=== PATIENT | female | born 1985 | race Caucasian/White ===

== ENCOUNTER → 2017-01-01 | Outpatient (CLI) | payer OTHER ==
[~2017-01-01] MED LIST: ACHYD1T PO; AMIT25TA9 PO; CETI10CA PO; CETI10TA17 PO; CFP200T PO; CHOL2000 PO; CPR500T PO; CYCL10TA9 PO; DCS100C PO; ERYT400T73 PO; FLC150T PO; FLUT16SP22 NSEACH; HYDR-3454 PO; HYDR-89 PO; IBP800T PO; LINA290C PO; LVT.05T PO; MULT-963 PO; NF-ESOM40C PO; OXYC-272 PO; PHEN200T27 PO; PHEN37.555 PO; PREN1TAB39 PO; RIZA10TA23; SPRINTEC PO; SUMA1TAB PO; allergy injections; fiber supplement
--- OUTSIDE RECORDS SUMMARY | 2017-01-01 08:57 | XMS REPORT | Continuity of Care Document ---
Author Author [facility] Organization [facility] Address Unknown Phone Unavailable Care Team Providers Care Fish Hatchery Specialist Name Role Phone Huey Roberts PCP [phone] Source Comments Some departments are not documenting in the electronic medical record. If you do not see the information that you expected, contact Release of Information in the Health Information Management department at [phone] for further assistance in locating additional records.[facility] Active Allergies and Adverse Reactions Allergen Noted Date Severity Reactions Comments Adhesive Tape (Rosins) 02/27/2016 Medium RASH Bactroban 08/09/2014 RASH Doxycycline 08/09/2014 STOMACH UPSET Tramadol 08/09/2014 AGITATION Current Medications Prescription Sig. Disp. Refills Start End Date Status Date MULTIVITAMIN PO Take by mouth. Active cetirizine (ZYRTEC) 10 mg Take 10 mg by mouth Active tablet daily. esomeprazole DR(+) Take 40 mg by mouth every Active (NEXIUM) 40 mg capsule morning. estrogens, Take 1 Tab by mouth Active estrafied-methyltestoster daily. one(+) (ESTRATEST) 1.25-2.5 mg tablet HYDROcodone-acetaminophen Take 1 Tab by mouth every Active (+) (VICODIN) 10-325 mg 6 hours as needed. tablet NAPROXEN SODIUM (ALEVE Take by mouth. Active PO) fluticasone (FLONASE) 50 Apply 2 Sprays to each Active mcg/actuation nasal spray nostril as directed daily. lidocaine 5 % gel Apply to affected area. Active LORCASERIN HCL (BELVIQ Take by mouth. Active PO) imiquimod(+) (ALDARA) 5 % Apply to affected area Active topical cream three times weekly. Active Problems Problem Noted Date Rash of face 08/09/2014 Overview: Red, slightly raised rash on face with small vesicles around mouth and eyelids. Present since Nov 2013. No clear trigger, though appeared 1 month after pelvic surgeries. Has tried switching make up and face products without noticeable change. Tried 1% and 2% hydrocortisone cream with relief. Was prescribed keflex and bactroban and steroid taper. Rash got worse with bactroban, but improved after ceasing bactroban. Tried stopping all makeup. Without resolution of symptoms (though she tried this while using the bactroban). Rash has not resolved with steroids. - Rash is concerning for contact dermatitis, although should have improved with steroids if it is contact dermatitis. - Would recommend only using hypoallergenic, fragrance free products on her face and dermatology referral for possible biopsy. PLAN - asked patient to only use hypoallergenic, fragrance free products such as makeup and moisturizer - Advised to consider dermatology referral for skin biopsy - she will see performance improvement director near hometown - Continue 1% hydrocortisone cream on face on problem areas only Seasonal allergies 08/09/2014 Overview: [facility] Gets weekly allergy shots Social History Tobacco Use Types Packs/Day Years Used Date Former Smoker Cigarettes Quit: 08/09/2003 Smokeless Tobacco: Never Used Last Filed Vital Signs Vital Sign Reading Time Taken Blood Pressure 111/71 02/27/2016 12:51 PM CDT Pulse 65 02/27/2016 12:51 PM CDT Temperature 36.3 C (97.4 F) 08/09/2014 3:11 PM CDT Respiratory Rate 20 02/27/2016 12:51 PM CDT Height 1.702 m (5' 7") 02/27/2016 12:51 PM CDT Weight 87.544 kg (193 lb) 02/27/2016 12:51 PM CDT Body Mass Index 30.22 02/27/2016 12:51 PM CDT Oxygen Saturation - - Plan of Care Health Maintenance Due Date Last Done Comments Physical (Comprehensive) 1990 Exam Pertussis Vaccine 1994 Tetanus Vaccine 2000 Influenza Vaccine 06/25/2016 Cervical Cancer Screening 10/25/2017 10/25/2014 (Previously completed) Results from Last 3 Months Not on file
[2017-01-01 09:10] LABS: BASOPHILS % (AUTO) 1 % (0-10); EOSINOPHILS # (AUTO) 0.1 10^3/uL (0.0-0.3); EOSINOPHILS % (AUTO) 3 % (0-10); LYMPHOCYTES # (AUTO) 2.3 X 10^3 (1.0-4.0); LYMPHOCYTES % (AUTO) 46 % (12-44); MEAN CORPUSCULAR HEMOGLOBIN 31 PG (25-34); MEAN CORPUSCULAR HGB CONC 35 G/DL (32-36); MEAN CORPUSCULAR VOLUME 89 FL (80-99); MEAN PLATELET VOLUME 9.5 FL (7.4-10.4); MONOCYTES # (AUTO) 0.3 X 10^3 (0.0-1.0); MONOCYTES % (AUTO) 6 % (0-12); NEUTROPHILS # (AUTO) 2.2 X 10^3 (1.8-7.8); NEUTROPHILS % (AUTO) 44 % (42-75); PLATELET COUNT 283 10^3/uL (130-400); RED CELL DISTRIBUTION WIDTH 12.1 % (10.0-14.5)
[2017-01-01 09:30] LABS: ALANINE AMINOTRANSFERASE 24 U/L (0-55); ALBUMIN 4.2 G/DL (3.2-4.5); ANION GAP 9 MMOL/L (5-14); ASPARTATE AMINO TRANSFERASE 23 U/L (5-34); BILIRUBIN,TOTAL 0.4 MG/DL (0.1-1.0); BLOOD UREA NITROGEN 11 MG/DL (7-18); BUN/CREATININE RATIO 13; CALCIUM 9.4 MG/DL (8.5-10.1); CARBON DIOXIDE 29 MMOL/L (21-32); CHLORIDE 103 MMOL/L (98-107); CHOLESTEROL 202 MG/DL (< 200); CREATININE SERUM 0.85 MG/DL (0.60-1.30); DIRECT LDL 150 MG/DL (1-129); GFR ESTIMATED > 60; GLUCOSE 83 MG/DL (70-105); POTASSIUM 4.2 MMOL/L (3.6-5.0); SODIUM 141 MMOL/L (135-145); TOTAL PROTEIN 6.7 G/DL (6.4-8.2); TRIGLYCERIDES 116 MG/DL (<150); VLDL CHOLESTEROL 23 MG/DL (5-40); hs C REACTIVE PROTEIN 0.28 MG/DL (0.00-0.50)
[2017-01-01 09:49] LABS: THYROID STIMULATING HORMONE 0.82 UIU/ML (0.35-4.94)
[2017-01-01 09:50] LABS: ERYTHROCYTE SEDIMENTATION RATE 10 MM/HR (0-20)
== END ==
LOC: LAB 08:52
PROVIDERS: ATTEND Nurse Practitioner Family
DX: Z00.00 Encounter for general adult medical examination without abnormal findings (principal); E78.2 Mixed hyperlipidemia; G89.4 Chronic pain syndrome; Z79.899 Other long term (current) drug therapy
CPT/HCPCS: 36415; 80053; 80061; 84443; 85025; 85652; 86141

== ENCOUNTER 2017-06-30 05:38 | Outpatient (CLI) | payer OTHER ==
[~2017-06-30] VITALS: Ht 167.6 cm; Wt 81.2 kg
[2017-06-30] MEDS ORDERED: FAMO-119 PO (13:34)
[2017-06-30] MEDS ORDERED: METH10TA3 PO (13:34)
[2017-06-30] MEDS ORDERED: LORC10TA PO (13:34)
[2017-06-30] MEDS ORDERED: ESTR-32 PO (13:34)
[2017-07-02] MEDS ORDERED: PANT40TA2 PO (13:08)
== END 2017-06-30 13:35 ==
LOC: PREOP 05:38
PROVIDERS: ATTEND Surgery
DX: Z01.818 Encounter for other preprocedural examination (principal); K21.9 Gastro-esophageal reflux disease without esophagitis

== ENCOUNTER 2017-07-02 10:57 | Day surgery (SDC) | payer OTHER ==
[~2017-07-02] VITALS: Ht 167.6 cm; Wt 81.2 kg
[~2017-07-02 10:57] MED LIST changes: +ESTR-32 PO; +FAMO-119 PO; +LORC10TA PO; +METH10TA3 PO
[2017-07-02] MEDS ORDERED: NS IV 500 ML 500 ML ONE (10:59)
--- OUTSIDE RECORDS SUMMARY | 2017-07-02 11:06 | XMS REPORT | Clinical Summary ---
Author Author [facility] Organization [facility] Address Unknown Phone Unavailable Care Team Providers Care Environmental Protection Officer Name Role Phone PCP Unavailable Source Comments Some departments are not documenting in the electronic medical record. If you do not see the information that you expected, contact Release of Information in the Health Information Management department at [phone] for further assistance in locating additional records.[facility] Allergies Active Allergy Reactions Severity Noted Date Comments Adhesive Tape (Rosins) RASH Medium 02/27/2016 Mupirocin Calcium RASH 08/09/2014 Doxycycline STOMACH UPSET 08/09/2014 Tramadol AGITATION 08/09/2014 Current Medications Prescription Sig. Disp. Refills Start [...] for skin biopsy - she will see tile sprayer near hometown - Continue 1% hydrocortisone cream on face on problem areas only Seasonal allergies 08/09/2014 Overview: [facility] Gets weekly allergy shots Family History Medical History Relation Name Comments Heart Disease Paternal Grandfather Relation Name Status Comments Paternal Grandfather Social History Tobacco Use Types Packs/Day Years Used Date Former Smoker Cigarettes Quit: 08/09/2003 Smokeless Tobacco: Never Used Sex Assigned at Date Recorded Not on file Last Filed Vital Signs Vital Sign Reading Time Taken Blood Pressure 111/71 02/27/2016 12:51 PM CDT Pulse 65 02/27/2016 12:51 PM CDT Temperature 36.3 C (97.4 F) 08/09/2014 3:11 PM CDT Respiratory Rate 20 02/27/2016 12:51 PM CDT Oxygen Saturation - - Inhaled Oxygen - - Concentration Weight 87.5 kg (193 lb) 02/27/2016 12:51 PM CDT Height 170.2 cm (5' 7") 02/27/2016 12:51 PM CDT Body Mass Index 30.23 02/27/2016 12:51 PM CDT Plan of Treatment Health Maintenance Due Date Last Done Comments PHYSICAL (COMPREHENSIVE) 1990 EXAM PERTUSSIS VACCINE 1994 TETANUS VACCINE 2000 INFLUENZA VACCINE 06/25/2017 CERVICAL CANCER SCREENING 10/25/2017 10/25/2014 (Previously completed) Results Not on filefrom Last 3 Months
[2017-07-02] MEDS ORDERED: NS IV 500 ML 500 ML IV SCH (11:15)
[2017-07-02] MEDS ORDERED: HURRICAINE EXT TUBE (BENZOCAINE) XX PRN (11:15)
[2017-07-02 11:25] VITALS: BP 95/67
--- NOTE | 2017-07-02 11:44 | Conscious Sedation/ASA ---
Conscious Sedation Pre-Proced Time Reviewed: 11:40 ASA Class: 1 Airway Mallampati Classification: ([place] appropriate class) I. II. III, IV Lungs Heart ASA score ASA 1: a normal healthy patient ASA 2: a patient with a mild systemic disease (mid diabetes, controlled hypertension, obesity ASA 3: a patient with a severe systemic disease that limits activity (angina , COPD, prior Myocardial infarction) ASA 4: a patient with an incapacitating disease that is a constant threat to life (CHF, renal failure) ASA 5: a moribund patient not expected to survive 24 hrs. (ruptured aneurysm) ASA 6: a declared brain patient whose organs are being harvested. For emergent operations, add the letter E after the classification Grade 2 Sedation Plan: Analgesia, Amnesia, Plan communicated to team members, Discussed options with patient/fam, Discussed risks with patient/fam Note The patient is an appropriate candidate to undergo the planned procedure, sedation, and anesthesia. The patient immediately re-assessed prior to indication. LINA CORRALES MD Jul 02, 2017 11:44 am
--- NOTE | 2017-07-02 11:44 | Progress Note-Pre Operative ---
Pre-Operative Progress Note H&P Reviewed The H&P was reviewed, patient examined and no changes noted. Date Seen by Provider: Jul 02, 2017 Time Seen by Provider: 11:40 Date H&P Reviewed: Jul 02, 2017 Time H&P Reviewed: 11:40 Pre-Operative Diagnosis: LINA WALKER MD Jul 02, 2017 11:44 am
[2017-07-02] MEDS ORDERED: ACETAMINOPHEN 325 MG TABLET/CAPLET (TYLENOL) PO PRN (11:45)
[2017-07-02] MEDS ORDERED: HYDROcodone/APAP 5 MG/325 MG (LORTAB) TAB PO PRN (11:45)
[2017-07-02] MEDS ORDERED: morphine INJ 10 MG/ML 1ML (SYR OR VIAL) IV PRN (11:45)
[2017-07-02] MEDS ORDERED: ONDANSETRON 4 MG/2 ML (SDV) Z0FRAN IV PRN (11:45)
[2017-07-02] MEDS ORDERED: MIDAZOLAM 2 MG/2 ML (VERSED) VIAL ONE ×4 (11:59→12:35)
[2017-07-02] MEDS ORDERED: fentaNYL INJECTION 100 MCG/2 ML AMP ONE (12:00)
[2017-07-02] MEDS ORDERED: LIDOCAINE JELLY 2% (XYLOCAINE) 5 ML TUBE ONE (12:00)
[2017-07-02] MEDS ORDERED: HURRICAINE EXT TUBE (BENZOCAINE) ONE (12:01)
[2017-07-02] MEDS: fentaNYL INJECTION 100 MCG/2 ML AMP IVP PRN ×2 (12:25→12:42)
[2017-07-02] MEDS: MIDAZOLAM 2 MG/2 ML (VERSED) VIAL IVP PRN ×4 (12:27→12:45)
--- NOTE | 2017-07-02 13:07 | Progress Note-Post Operative ---
Post-Operative Progess Note Surgeon (s)/Heavy Equipment Sales Associate (s) Surgeon LINA CORRALES MD Heavy Equipment Sales Associate: none Pre-Operative Diagnosis GERD Post-Operative Diagnosis reflux esophagitis(class B), small-moderate HH(1.5-2cm), mild-moderate gastritis. Procedure & Operative Findings Date of Procedure 07/02/17 Procedure Performed/Findings EGD with bx. Anesthesia Type minimal Estimated Blood Loss Estimated blood loss (mL): minimal Specimens/Packing Specimens Removed GE jxn, antrum LINA CORRALES MD Jul 02, 2017 1:07 pm
[2017-07-02] MEDS ORDERED: PANT40TA2 PO (13:08)
--- NOTE | 2017-07-02 13:10 | Discharge Inst-Surgical ---
D/C Lap Instructions-KIDO New, Converted, or Re-Newed RX: RX on Chart Follow Up PRN Activity as tolerated No driving for 24 hours Avoid Alcohol, Caffeine, Spicy [place] and Acid foods. Drink 64 fluid oz or more of fluids per day. Symptoms to Report: Fever over 101 degree F, Nausea/Vomiting If any problems/questions: Contact your physician or go to Emergency Room LINA CORRALES MD Jul 02, 2017 1:10 pm
[2017-07-02 13:15] VITALS: BP 131/55
[2017-07-02] MEDS ORDERED: LIDOCAINE JELLY 2% (XYLOCAINE) 5 ML TUBE TOP ONE (13:15)
[2017-07-02 13:45] VITALS: BP 90/59
[2017-07-02 14:00] VITALS: BP 95/67
[2017-07-02 14:08] VITALS: BP 95/67
--- NOTE | 2017-07-04 09:35 | OPERATIVE REPORT ---
DATE OF SERVICE: 07/02/2017 ATTENDING PRIMARY CARE PHYSICIAN: Dr. Aileen Roberts. PREOPERATIVE DIAGNOSIS: Gastroesophageal reflux disease. POSTOPERATIVE DIAGNOSES: Reflux esophagitis class B, qceia-ym-ybjjayzu size hiatal hernia, approximately 1.5 to 2 cm in size, zbif-nn-lrzkpdju gastritis. PROCEDURE: EGD with biopsy. SURGEON: Lina Corrales MD ANESTHESIA: Conscious sedation. ESTIMATED BLOOD LOSS: Minimal. FINDINGS: Reflux esophagitis class B, zlmlz-ox-pfsmrdvo size hiatal hernia 1.5 to 2 cm in size, sghf-wy-kcanwyzc gastritis. DISPOSITION: The patient tolerated the procedure well. INDICATIONS: The patient is a 32-year-old female known to us. She has had issues with chronic abdominal pain including a history of endometriosis. She underwent a laparoscopic hysterectomy in October 2012 and states that she did have some postoperative bleeding, requiring a reclosure of the vaginal cuff. She then underwent a completion of bilateral salpingo-oophorectomy in June 2013. She did have a colonoscopy performed due to chronic abdominal pain on February 2014 , which showed chronic stage I external and internal hemorrhoids; however, the remainder of the rectum and colon were normal with no darkly pigmented spots to indicate any endometrial implants throughout the colon. She has had a significant history of reflux in the past; however, this was normally controlled with Nexium; however, she reports that her symptoms have worsened despite losing weight. She reports upon eating some meals as well as upon exertion of Valsalva, she will also have recurrent episodes of reflux and regurgitation. DESCRIPTION OF PROCEDURE: The patient was brought to the endoscopy suite, laid in the left lateral decubitus position. After adequate IV pain and sedative medications and conscious sedation anesthesia, the mouthpiece was applied. The endoscope was placed in the mouth, visualizing the pharynx and hypopharyngeal region. Vocal cords, epiglottis and vallecula identified and appeared to be normal. The endoscope was then gently intubated at the esophageal opening and esophagus was insufflated. The endoscope was then advanced to the first, second and third portions of the esophagus. At the level of the GE junction, a reflux esophagitis class B identified. There were no ulcers or strictures identified in this region. A biopsy was taken with forceps with visualization of good hemostasis. The endoscope was then gently advanced in the stomach. The endoscope retroflexed, visualizing a small to moderate size hiatal hernia 1.5 to 2 cm in size. There was a mild to moderate gastritis; however, there were no formal ulcers, polyps or any neoplasms identified throughout the stomach. A biopsy was taken of the stomach antrum with forceps with visualization of good hemostasis. The endoscope was then advanced to the pylorus and the first and second portions of the duodenum, which appeared normal with no distal obstructions. The endoscope was then slowly withdrawn while taking a second look and suctioning of residual air with no additional findings. The patient tolerated the procedure well. We will have her undergo the necessary lifestyle and diet accommodation including small and more frequent meals, avoidance of eating at night as well as head elevation while laying supine. We will also have her avoid caffeinated beverages, spicy, greasy and acidic foods. We will also proceed with a trial of Protonix 40 mg daily. If she does have recurrent symptoms despite maximal medical therapy, this may be an indication for her to have the hiatal hernia repair. Job ID: [id number] DocumentID: [id number] Dictated Date: 07/02/2017 13:01:59 Accountancy Professor Date: 07/03/2017 04:25:35 Dictated By: LINA CORRALES MD
== END 2017-07-02 14:00 | disposition home or self-care (01) ==
LOC: ENDO 10:57
PROVIDERS: ATTEND Surgery
DX: K21.0 Gastro-esophageal reflux disease with esophagitis (principal); K44.9 Diaphragmatic hernia without obstruction or gangrene; K29.70 Gastritis, unspecified, without bleeding; Z87.891 Personal history of nicotine dependence; Z79.899 Other long term (current) drug therapy

== ENCOUNTER → 2017-07-08 | Outpatient (CLI) | payer OTHER ==
[~2017-07-08] MED LIST changes: +PANT40TA2 PO
[2017-07-08 08:49] LABS: CHOLESTEROL 188 MG/DL (< 200); DIRECT LDL 138 MG/DL (1-129); TRIGLYCERIDES 71 MG/DL (<150); VLDL CHOLESTEROL 14 MG/DL (5-40)
== END ==
LOC: LAB 08:00
PROVIDERS: ATTEND Family Medicine
DX: E78.2 Mixed hyperlipidemia (principal)
CPT/HCPCS: 36415; 80061

== ENCOUNTER 2017-08-11 11:13 | Outpatient (RCR) | payer OTHER | END 2017-11-09 | disposition home or self-care (01) | LOC: CARD 11:13 | PROVIDERS: ATTEND Nurse Practitioner Family | DX: R00.2 Palpitations (principal) | CPT/HCPCS: 93225; 93226 ==

== ENCOUNTER → 2017-09-07 | Outpatient (CLI) | payer OTHER | LOC: CARD 11:58 | PROVIDERS: ATTEND Internal Medicine Cardiovascular Disease | DX: J30.2 Other seasonal allergic rhinitis (principal); R00.2 Palpitations; G89.4 Chronic pain syndrome | CPT/HCPCS: 93306; 93351 ==

== ENCOUNTER 2017-10-06 08:55 | Outpatient (CLI) | payer OTHER | END 2017-10-06 09:20 | disposition home or self-care (01) | LOC: SLEEP 08:55 | PROVIDERS: ATTEND Otolaryngology Otolaryngology/Facial Plastic Surgery | DX: R06.83 Snoring (principal) ==

== ENCOUNTER → 2018-03-10 | Outpatient (CLI) | payer OTHER ==
--- NOTE | 2018-03-10 18:37 | Diagnostic Imaging Report ---
INDICATION: Routine screening. No prior mammograms are available for comparison. This is a baseline study. 2D and 3D bilateral screening mammography was performed. The current study was also evaluated with a Computer Aided Detection (CAD) system. FINDINGS: Scattered fibronodular densities are identified bilaterally. No mass or malignant-appearing microcalcifications are seen. The axillae are unremarkable. IMPRESSION: No mammographic features suspicious for malignancy are identified. ACR BI-RADS Category 1: Negative. Result letter will be mailed to the patient. Note: At least 10% of breast cancer is not imaged by mammography. Dictated by: Dictated on workstation # [id number]
== END ==
LOC: RAD 14:36
PROVIDERS: ATTEND Obstetrics & Gynecology
DX: Z12.31 Encounter for screening mammogram for malignant neoplasm of breast (principal)
CPT/HCPCS: 77067

== ENCOUNTER 2018-07-21 08:14 | Outpatient (RCR) | payer OTHER ==
[~2018-07-21 08:14] MED LIST changes: -ESTR-32 PO; +ESTR-85 PO
== END 2018-07-24 | disposition home or self-care (01) ==
PROVIDERS: ATTEND Nurse Practitioner Family
DX: R10.2 Pelvic and perineal pain (principal)

== ENCOUNTER 2018-10-21 14:23 | Outpatient (RCR) | payer OTHER | END 2018-10-23 | disposition home or self-care (01) | PROVIDERS: ATTEND Nurse Practitioner Family | DX: R10.2 Pelvic and perineal pain (principal) ==

== ENCOUNTER 2018-10-28 08:30 | Outpatient (RCR) | payer OTHER | END 2018-11-23 15:20 | disposition home or self-care (01) | PROVIDERS: ATTEND Nurse Practitioner Family | DX: R10.2 Pelvic and perineal pain (principal) ==

== ENCOUNTER → 2018-11-22 | Outpatient (CLI) | payer OTHER ==
[2018-11-22 07:43] LABS: HEMOGLOBIN 13.8 G/DL (11.5-16.0); MEAN PLATELET VOLUME 9.9 FL (7.4-10.4); RED CELL DISTRIBUTION WIDTH 12.7 % (10.0-14.5); WHITE BLOOD COUNT 5.8 10^3/uL (4.3-11.0)
[2018-11-22 08:03] LABS: ALANINE AMINOTRANSFERASE 31 U/L (0-55); ALBUMIN 4.1 GM/DL (3.2-4.5); ALKALINE PHOSPHATASE 38 U/L (40-136); BILIRUBIN,TOTAL 0.4 MG/DL (0.1-1.0); BUN/CREATININE RATIO 12; CALCIUM 9.5 MG/DL (8.5-10.1); CARBON DIOXIDE 27 MMOL/L (21-32); CHLORIDE 104 MMOL/L (98-107); CHOLESTEROL 232 MG/DL (< 200); CREATININE SERUM 0.82 MG/DL (0.60-1.30); GFR ESTIMATED > 60; GLUCOSE 90 MG/DL (70-105); HDL CHOLESTEROL 45 MG/DL (40-60); SODIUM 141 MMOL/L (135-145); TOTAL PROTEIN 6.7 GM/DL (6.4-8.2); TRIGLYCERIDES 117 MG/DL (<150); VLDL CHOLESTEROL 23 MG/DL (5-40)
== END ==
LOC: LAB 07:30
PROVIDERS: ATTEND Nurse Practitioner Family
DX: Z00.00 Encounter for general adult medical examination without abnormal findings (principal)
CPT/HCPCS: 36415; 80053; 80061; 84443; 85027

== ENCOUNTER → 2018-12-07 | Outpatient (CLI) | payer OTHER ==
[~2018-12-07] MED LIST changes: +GADOBUTROL 10 MMOL/10 ML (GADAVIST) VIAL IV ONE
--- NOTE | 2018-12-07 16:56 | Diagnostic Imaging Report ---
PROCEDURE: MRI pelvis with and without contrast. TECHNIQUE: Multiplanar, multisequence MRI of the pelvis was performed with and without contrast. INDICATION: Diffuse pelvic pain. COMPARISON: CT of abdomen and pelvis from 01/10/2014. FINDINGS: No free pelvic fluid. Status post hysterectomy and bilateral oophorectomy. No soft tissue mass within the pelvis. Vaginal cuff is normal in appearance. The bilateral distal iliopsoas tendons are intact. Proximal hamstring complexes are normal. Adductor musculature is normal. No tear of the gluteus medius or minimus tendons on either side. No peritrochanteric fluid collection to indicate bursitis. SI joints are normal. No hip effusion on either side. No pathologic enhancement on postcontrast imaging. No fracture or osteonecrosis of the proximal femurs. IMPRESSION: 1. No soft tissue or osseous pathology. 2. Hysterectomy and bilateral oophorectomy. Dictated by: Dictated on workstation # [id number]
== END ==
LOC: RAD 15:28
PROVIDERS: ATTEND Nurse Practitioner Family
DX: R10.2 Pelvic and perineal pain (principal); Z90.722 Acquired absence of ovaries, bilateral; Z90.710 Acquired absence of both cervix and uterus
CPT/HCPCS: 72197

== ENCOUNTER → 2018-12-22 | Outpatient (CLI) | payer OTHER ==
[~2018-12-22] MED LIST changes: -GADOBUTROL 10 MMOL/10 ML (GADAVIST) VIAL IV ONE
[2018-12-22 11:19] LABS: MAGNESIUM 2.2 MG/DL (1.8-2.4)
== END ==
LOC: LAB 10:40
PROVIDERS: ATTEND Nurse Practitioner Family
DX: R79.89 Other specified abnormal findings of blood chemistry (principal)
CPT/HCPCS: 36415; 82306; 83735; 85652; 86141

== ENCOUNTER 2019-03-22 14:15 | Outpatient (RCR) | payer OTHER | END 2019-04-03 | disposition home or self-care (01) | DX: M54.5 Low back pain (principal); R10.2 Pelvic and perineal pain ==

== ENCOUNTER → 2019-03-29 | Outpatient (CLI) | payer OTHER ==
[2019-03-29 09:46] LABS: ALANINE AMINOTRANSFERASE 29 U/L (0-55); ALBUMIN 4.1 GM/DL (3.2-4.5); ALKALINE PHOSPHATASE 37 U/L (40-136); BILIRUBIN,TOTAL 0.2 MG/DL (0.1-1.0); BUN/CREATININE RATIO 16; CALCIUM 9.4 MG/DL (8.5-10.1); CARBON DIOXIDE 29 MMOL/L (21-32); CHLORIDE 105 MMOL/L (98-107); CHOLESTEROL 137 MG/DL (< 200); CREATININE SERUM 0.86 MG/DL (0.60-1.30); GFR ESTIMATED > 60; GLUCOSE 89 MG/DL (70-105); HDL CHOLESTEROL 46 MG/DL (40-60); POTASSIUM 4.7 MMOL/L (3.6-5.0); SODIUM 140 MMOL/L (135-145); TOTAL PROTEIN 6.6 GM/DL (6.4-8.2); TRIGLYCERIDES 69 MG/DL (<150); VLDL CHOLESTEROL 14 MG/DL (5-40)
== END ==
LOC: LAB 09:05
PROVIDERS: ATTEND Family Medicine
DX: E78.5 Hyperlipidemia, unspecified (principal)
CPT/HCPCS: 36415; 80053; 80061

== ENCOUNTER → 2019-08-24 | Outpatient (CLI) | payer OTHER ==
[2019-08-24 18:04] LABS: BASOPHILS % (AUTO) 1 % (0-10); EOSINOPHILS # (AUTO) 0.1 10^3/uL (0.0-0.3); EOSINOPHILS % (AUTO) 2 % (0-10); HEMATOCRIT 39 % (35-52); HEMOGLOBIN 13.5 G/DL (11.5-16.0); LYMPHOCYTES # (AUTO) 2.8 X 10^3 (1.0-4.0); LYMPHOCYTES % (AUTO) 51 % (12-44); MEAN CORPUSCULAR HEMOGLOBIN 30 PG (25-34); MEAN CORPUSCULAR HGB CONC 34 G/DL (32-36); MEAN CORPUSCULAR VOLUME 88 FL (80-99); MEAN PLATELET VOLUME 9.7 FL (7.4-10.4); MONOCYTES # (AUTO) 0.3 X 10^3 (0.0-1.0); MONOCYTES % (AUTO) 6 % (0-12); NEUTROPHILS # (AUTO) 2.2 X 10^3 (1.8-7.8); NEUTROPHILS % (AUTO) 40 % (42-75); PLATELET COUNT 247 10^3/uL (130-400); RED CELL DISTRIBUTION WIDTH 12.2 % (10.0-14.5); WHITE BLOOD COUNT 5.5 10^3/uL (4.3-11.0)
[2019-08-24 18:06] LABS: BILIRUBIN,URINE NEGATIVE (NEGATIVE); CLARITY,URINE CLEAR; COLOR,URINE YELLOW; GLUCOSE, URINE (UA) NEGATIVE (NEGATIVE); KETONES,URINE NEGATIVE (NEGATIVE); LEUKOCYTE ESTERASE ,URINE NEGATIVE (NEGATIVE); NITRITE,URINE NEGATIVE (NEGATIVE); PH,URINE 6.5 (5-9); PROTEIN,URINE 1+ (NEGATIVE)
[2019-08-24 18:25] LABS: ALANINE AMINOTRANSFERASE 28 U/L (0-55); ALBUMIN 4.2 GM/DL (3.2-4.5); ALKALINE PHOSPHATASE 40 U/L (40-136); BILIRUBIN,TOTAL 0.2 MG/DL (0.1-1.0); BUN/CREATININE RATIO 15; CALCIUM 8.6 MG/DL (8.5-10.1); CARBON DIOXIDE 24 MMOL/L (21-32); CHLORIDE 107 MMOL/L (98-107); CREATININE SERUM 0.86 MG/DL (0.60-1.30); GFR ESTIMATED > 60; GLUCOSE 102 MG/DL (70-105); POTASSIUM 3.9 MMOL/L (3.6-5.0); SODIUM 142 MMOL/L (135-145); TOTAL PROTEIN 6.8 GM/DL (6.4-8.2)
[2019-08-24 18:26] LABS: BACTERIA,URINE TRACE /HPF; RBC,URINE RARE /HPF
[2019-08-24 18:27] LABS: AMORPHOUS SEDIMENT,UR FEW AMOR URATES /LPF
[2019-08-24 18:38] LABS: BASOPHILS % (MANUAL) 1 %; EOSINOPHILS % (MANUAL) 3 %; LYMPHOCYTES % (MANUAL) 51 %; MONOCYTES % (MANUAL) 8 %; NEUTROPHILS % (MANUAL) 31 %; RBC MORPH NORMAL; REACTIVE LYMPHOCYTES 6 %
[2019-08-24 18:39] LABS: ERYTHROCYTE SEDIMENTATION RATE 9 MM/HR (0-20)
== END ==
LOC: LAB 17:47
PROVIDERS: ATTEND Nurse Practitioner Family
DX: R20.2 Paresthesia of skin (principal)
CPT/HCPCS: 36415; 80053; 81000; 84443; 85007; 85027; 85652; 86141

== ENCOUNTER → 2019-09-08 | Outpatient (CLI) | payer OTHER ==
[~2019-09-08] MED LIST changes: +GADOBUTROL 10 MMOL/10 ML (GADAVIST) VIAL IV ONE
--- NOTE | 2019-09-08 10:16 | Diagnostic Imaging Report ---
PROCEDURE: MR imaging of the brain with and without contrast. TECHNIQUE: Multiplanar, multisequence MR imaging of the brain was performed with and without contrast. INDICATION: Whole body numbness as well as headaches and bilateral arm weakness. COMPARISON: No prior studies are available for comparison. FINDINGS: Ventricles and sulci are within normal limits. No sulcal effacement or midline shift is detected. No acute intra-axial or extra-axial hemorrhage is detected. There is no diffusion restriction to suggest acute ischemia. The normal expected flow voids within the carotid siphons are seen. No periventricular white matter changes are seen to suggest a demyelinating process. Corpus callosum is unremarkable. Sella and parasellar structures are unremarkable. Postcontrast images are unremarkable for enhancing lesions. IMPRESSION: Unremarkable pre and postcontrast MRI of the brain. Dictated by: Dictated on workstation # [id number]
== END ==
LOC: RAD 08:34
PROVIDERS: ATTEND Nurse Practitioner Family
DX: R20.2 Paresthesia of skin (principal); R51 Headache; R53.1 Weakness
CPT/HCPCS: 70553

== ENCOUNTER → 2019-09-11 | Outpatient (CLI) | payer OTHER ==
[~2019-09-11] MED LIST changes: -GADOBUTROL 10 MMOL/10 ML (GADAVIST) VIAL IV ONE
--- NOTE | 2019-09-11 13:35 | Diagnostic Imaging Report ---
INDICATION: Paresthesias and head pain. FINDINGS: Cervical body heights are maintained. The alignment is within normal limits. The prevertebral space is unremarkable. IMPRESSION: Unremarkable radiographic appearance of the cervical spine. Dictated by: Dictated on workstation # [id number]
== END ==
LOC: RAD 11:15
PROVIDERS: ATTEND Nurse Practitioner Family
DX: R20.2 Paresthesia of skin (principal); R51 Headache
CPT/HCPCS: 72040

== ENCOUNTER → 2019-09-19 | Outpatient (CLI) | payer OTHER ==
[~2019-09-19] MED LIST changes: +LEVO5TAB28 PO; +PRD20T PO; +VITA1CAP19 PO
[2019-09-19 10:54] LABS: FREE T4 (FREE THYROXINE) 0.92 NG/DL (0.70-1.48)
== END ==
LOC: LAB 09:31
PROVIDERS: ATTEND Family Medicine
DX: M62.81 Muscle weakness (generalized) (principal)
CPT/HCPCS: 36415; 83519; 84439; 84443

== ENCOUNTER 2019-09-20 12:30 | Outpatient (CLI) | payer OTHER ==
[~2019-09-20] VITALS: Ht 167.7 cm; Wt 86.3 kg
[~2019-09-20 12:30] MED LIST changes: -LEVO5TAB28 PO; -PRD20T PO; -VITA1CAP19 PO
[2019-09-20 12:35] VITALS: BP 116/87
--- NOTE | 2019-09-20 12:35 | NUR ---
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 REPORTS SHE HAS HAD RECENT LABS AND RADIOLOGY STUDIES AND REPORTS TODAY FOR LUMBAR PUNCTURE WITH DR KLINE. CONSENT OBTAINED.
--- NOTE | 2019-09-20 13:00 | NUR ---
DR KLINE IN ROOM FOR LUMBAR PUNCTURE.
--- NOTE | 2019-09-20 13:25 | NUR ---
CSF COLLECTION TUBES LABELED AT BEDSIDE BY DR KLINE, AND HAND CARRIED TO LAB.
--- NOTE | 2019-09-20 13:30 | Anesthesia-Procedure Note ---
Procedures/Interventions Procedure Start/Stop/Diagnosis Date of Procedure: Sep 20, 2019 Start Time: 13:00 Referring Physician: Rain Hinojosa APRN/Dr Roberts Preprocedural Diagnosis: Paresthesia/Weakness Brief History Anesthesia Note Pt has been having weakness and tingling over the past 5 weeks. It began on the left side and has progressed B/L over the past couple of weeks. 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 Plt count was normal within the last 2 weeks and recent MRI brain showed no contraindication to lumbar puncture. +/- of the lumbar puncture was discussed with the patient, questions answered and consent was signed. Stop Time: 13:15 Postprocedural Diagnosis: Same Lumbar Puncture Discussed Risk,Benefits: Yes Patient Consents: Yes Position: L3-4, Left Sterile Technique: Yes (ChloraPrep with drape) Opening Pressure: 24 cm CSF Fluid Color: Clear Spinal Needle Used: 22g Bueno 3 1/2 inch Procedure Notes See above for LP details. + CSF on 1st pass -- no difficulty, no paresthesia noted by patient. Sterile bandage applied. Pt tolerated the procedure well. She will follow up with Dr Roberts as scheduled. VSS after the procedure and she is ready for discharge to home. Will be available if needed. Other Comment: ASA 2 RK KLINE DO Sep 20, 2019 13:30 POS
[2019-09-20] MEDS ORDERED: LEVO5TAB28 PO (13:34)
[2019-09-20] MEDS ORDERED: PRD20T PO (13:34)
[2019-09-20] MEDS ORDERED: VITA1CAP19 PO (13:34)
--- NOTE | 2019-09-20 13:40 | NUR ---
POST PROCEDURE VITAL SIGNS: TEMP 36.5, PULSE 63, RESPIRATIONS 16, B/P 111/72, SAO2 97% ON ROOM AIR. DENIES COMPLAINTS. HAS HAD COLA, BAND-AID D/I TO MID LOWER SPINE LP SITE. DR KLINE BACK TO BEDSIDE TO CHECK ON PT, STATES PT CAN BE DISMISSED NOW.
[2019-09-20 14:07] LABS: CSF GLUCOSE 53 MG/DL (50-80); CSF TOTAL PROTEIN 24 MG/DL (15-40)
[2019-09-20 14:20] LABS: APPEARANCE,CSF CLEAR; COLOR,CSF COLORLESS; RED BLOOD CELL,CSF 2 CELLS (0-0); WHITE BLOOD CELL,CSF 2 CELLS (0-5)
[2019-09-20 14:21] LABS: CSF TUBE NUMBER 4
== END 2019-09-20 13:40 | disposition home or self-care (01) ==
LOC: SDC 12:30
PROVIDERS: ATTEND Nurse Practitioner Family
DX: M47.816 Spondylosis without myelopathy or radiculopathy, lumbar region (principal)
CPT/HCPCS: 82945; 84157; 87070; 87101; 87205; 87252; 88112; 89051

== ENCOUNTER → 2019-09-25 | Outpatient (CLI) | payer OTHER ==
[~2019-09-25] MED LIST changes: +LEVO5TAB28 PO; +PRD20T PO; +VITA1CAP19 PO
== END ==
LOC: LAB 11:53
PROVIDERS: ATTEND Family Medicine
DX: R00.1 Bradycardia, unspecified (principal); R53.81 Other malaise; R53.83 Other fatigue; R94.6 Abnormal results of thyroid function studies; R20.2 Paresthesia of skin; R53.1 Weakness
CPT/HCPCS: 36415; 86376; 86618; 86666; 86668; 86757; 86800

== ENCOUNTER → 2019-09-29 | Outpatient (CLI) | payer OTHER ==
[~2019-09-29] MED LIST changes: -ESTR-85 PO; +SYNTEST.HS PO
--- NOTE | 2019-09-29 10:04 | Diagnostic Imaging Report ---
PROCEDURE: MR imaging cervical spine without contrast. TECHNIQUE: Multiplanar, multisequence MR imaging of the cervical spine was performed without contrast. INDICATION: Numbness, bilateral arm weakness. Cervical spinal cord has a normal volume and normal morphology and a normal signal intensity with CSF circumscribing the cord at each vertebral body and disc space level, spinal canal is widely patent throughout. There is no significant foraminal encroachment. No focal disc herniation. No bone contusion, marrow edema or fracture pattern. The ligamentous structures were intact. There was no paravertebral mass, hemorrhage or fluid collection. No intradural abnormality. IMPRESSION: Unremarkable MRI cervical spine. Dictated by: Dictated on workstation # [id number]
== END ==
LOC: RAD 07:52
PROVIDERS: ATTEND Family Medicine
DX: M54.2 Cervicalgia (principal); M62.81 Muscle weakness (generalized); R20.2 Paresthesia of skin; R51 Headache; R20.0 Anesthesia of skin; R94.6 Abnormal results of thyroid function studies
CPT/HCPCS: 72141; 76536

== ENCOUNTER 2019-10-02 09:04 | Outpatient (RCR) | payer OTHER | END 2019-12-31 | disposition home or self-care (01) | LOC: CARD 09:04 | PROVIDERS: ATTEND Nurse Practitioner Family | DX: R53.1 Weakness (principal); R20.2 Paresthesia of skin; R94.6 Abnormal results of thyroid function studies; R53.83 Other fatigue; R53.81 Other malaise; R00.1 Bradycardia, unspecified | CPT/HCPCS: 93270 ==

== ENCOUNTER → 2019-10-23 | Outpatient (CLI) | payer OTHER ==
[~2019-10-23] MED LIST changes: +ESTR-85 PO; -SYNTEST.HS PO
[2019-10-23 15:01] LABS: BASOPHILS % (AUTO) 1 % (0-10); EOSINOPHILS # (AUTO) 0.1 10^3/uL (0.0-0.3); EOSINOPHILS % (AUTO) 2 % (0-10); HEMATOCRIT 41 % (35-52); LYMPHOCYTES # (AUTO) 2.1 X 10^3 (1.0-4.0); LYMPHOCYTES % (AUTO) 37 % (12-44); MEAN CORPUSCULAR HEMOGLOBIN 30 PG (25-34); MEAN CORPUSCULAR HGB CONC 34 G/DL (32-36); MEAN CORPUSCULAR VOLUME 90 FL (80-99); MEAN PLATELET VOLUME 9.7 FL (7.4-10.4); MONOCYTES # (AUTO) 0.3 X 10^3 (0.0-1.0); MONOCYTES % (AUTO) 4 % (0-12); NEUTROPHILS # (AUTO) 3.2 X 10^3 (1.8-7.8); NEUTROPHILS % (AUTO) 57 % (42-75); PLATELET COUNT 278 10^3/uL (130-400); RED CELL DISTRIBUTION WIDTH 12.9 % (10.0-14.5); WHITE BLOOD COUNT 5.6 10^3/uL (4.3-11.0)
[2019-10-23 15:26] LABS: ALANINE AMINOTRANSFERASE 34 U/L (0-55); ALBUMIN 4.4 GM/DL (3.2-4.5); ALKALINE PHOSPHATASE 40 U/L (40-136); BILIRUBIN,TOTAL 0.2 MG/DL (0.1-1.0); BUN/CREATININE RATIO 12; CALCIUM 8.9 MG/DL (8.5-10.1); CARBON DIOXIDE 25 MMOL/L (21-32); CHLORIDE 106 MMOL/L (98-107); CREATININE SERUM 0.94 MG/DL (0.60-1.30); GFR ESTIMATED > 60; GLUCOSE 85 MG/DL (70-105); POTASSIUM 4.1 MMOL/L (3.6-5.0); SODIUM 141 MMOL/L (135-145)
[2019-10-23 15:29] LABS: BAND NEUTROPHILS 1 %; BASOPHILS % (MANUAL) 0 %; EOSINOPHILS % (MANUAL) 4 %; LYMPHOCYTES % (MANUAL) 35 %; MONOCYTES % (MANUAL) 5 %; NEUTROPHILS % (MANUAL) 53 %; REACTIVE LYMPHOCYTES 2 %
[2019-10-23 15:30] LABS: RBC MORPH NORMAL
[2019-10-23 15:48] LABS: FREE T4 (FREE THYROXINE) 0.91 NG/DL (0.70-1.48)
== END ==
LOC: LAB 14:41
PROVIDERS: ATTEND Nurse Practitioner Family
DX: R53.83 Other fatigue (principal); R94.6 Abnormal results of thyroid function studies
CPT/HCPCS: 36415; 80053; 84439; 84443; 85007; 85027; 86663; 86664; 86665

== ENCOUNTER → 2020-09-13 | Outpatient (CLI) | payer OTHER ==
[~2020-09-13] MED LIST changes: -ESTR-85 PO; +SYNTEST.HS PO
[2020-09-13 08:10] LABS: BASOPHILS # (AUTO) 0.1 10^3/uL (0.0-0.1); BASOPHILS % (AUTO) 1 % (0-10); EOSINOPHILS # (AUTO) 0.1 10^3/uL (0.0-0.3); EOSINOPHILS % (AUTO) 2 % (0-10); HEMATOCRIT 43 % (35-52); LYMPHOCYTES # (AUTO) 2.4 10^3/uL (1.0-4.0); LYMPHOCYTES % (AUTO) 40 % (12-44); MEAN CORPUSCULAR HEMOGLOBIN 30 pg (25-34); MEAN CORPUSCULAR HGB CONC 32 g/dL (32-36); MEAN CORPUSCULAR VOLUME 93 fL (80-99); MEAN PLATELET VOLUME 9.7 fL (9.0-12.2); MONOCYTES # (AUTO) 0.4 10^3/uL (0.0-1.0); MONOCYTES % (AUTO) 6 % (0-12); NEUTROPHILS % (AUTO) 51 % (42-75); PLATELET COUNT 280 10^3/uL (130-400); WHITE BLOOD COUNT 5.9 10^3/uL (4.3-11.0)
[2020-09-13 08:30] LABS: ALANINE AMINOTRANSFERASE 21 U/L (0-55); ALBUMIN 4.1 GM/DL (3.2-4.5); ALKALINE PHOSPHATASE 41 U/L (40-136); BILIRUBIN,TOTAL 0.4 MG/DL (0.1-1.0); BUN/CREATININE RATIO 13; CALCIUM 9.3 MG/DL (8.5-10.1); CARBON DIOXIDE 24 MMOL/L (21-32); CHLORIDE 104 MMOL/L (98-107); CHOLESTEROL 200 MG/DL (< 200); CREATININE SERUM 0.86 MG/DL (0.60-1.30); ERYTHROCYTE SEDIMENTATION RATE 10 MM/HR (0-20); GFR ESTIMATED > 60; GLUCOSE 89 MG/DL (70-105); HDL CHOLESTEROL 57 MG/DL (40-60); POTASSIUM 4.3 MMOL/L (3.6-5.0); SODIUM 141 MMOL/L (135-145); TOTAL PROTEIN 6.7 GM/DL (6.4-8.2); TRIGLYCERIDES 82 MG/DL (<150); VLDL CHOLESTEROL 16 MG/DL (5-40)
[2020-09-13 08:51] LABS: FREE T4 (FREE THYROXINE) 0.97 NG/DL (0.70-1.48)
== END ==
LOC: LAB 07:45
PROVIDERS: ATTEND Nurse Practitioner Family
DX: Z00.00 Encounter for general adult medical examination without abnormal findings (principal); E78.2 Mixed hyperlipidemia; R51.9 Headache, unspecified; M54.2 Cervicalgia; M25.50 Pain in unspecified joint; E04.1 Nontoxic single thyroid nodule; B27.90 Infectious mononucleosis, unspecified without complication; R53.83 Other fatigue; R20.2 Paresthesia of skin
CPT/HCPCS: 36415; 80053; 80061; 84439; 84443; 85025; 85652; 86038; 86141

== ENCOUNTER → 2020-09-18 | Outpatient (CLI) | payer OTHER | LOC: LAB 13:07 | PROVIDERS: ATTEND Nurse Practitioner Family | DX: Z01.89 Encounter for other specified special examinations (principal); Z86.19 Personal history of other infectious and parasitic diseases | CPT/HCPCS: 36415; 86663; 86664; 86665; 86666; 86668; 86757 ==

== ENCOUNTER → 2021-02-21 | Outpatient (CLI) | payer OTHER | LOC: LAB 09:38 | DX: K92.9 Disease of digestive system, unspecified (principal); R53.83 Other fatigue | CPT/HCPCS: 36415; 86003 ==

== ENCOUNTER → 2022-06-23 | Outpatient (CLI) | payer OTHER ==
[2022-06-23 10:37] LABS: BASOPHILS # (AUTO) 0.1 10^3/uL (0.0-0.1); BASOPHILS % (AUTO) 1 % (0-10); EOSINOPHILS # (AUTO) 0.1 10^3/uL (0.0-0.3); EOSINOPHILS % (AUTO) 1 % (0-10); HEMATOCRIT 42 % (35-52); HEMOGLOBIN 14.3 g/dL (11.5-16.0); LYMPHOCYTES # (AUTO) 2.1 10^3/uL (1.0-4.0); LYMPHOCYTES % (AUTO) 34 % (12-44); MEAN CORPUSCULAR HEMOGLOBIN 31 pg (25-34); MEAN CORPUSCULAR HGB CONC 34 g/dL (32-36); MEAN CORPUSCULAR VOLUME 90 fL (80-99); MEAN PLATELET VOLUME 9.7 fL (9.0-12.2); MONOCYTES # (AUTO) 0.3 10^3/uL (0.0-1.0); MONOCYTES % (AUTO) 5 % (0-12); NEUTROPHILS # (AUTO) 3.6 10^3/uL (1.8-7.8); NEUTROPHILS % (AUTO) 59 % (42-75); PLATELET COUNT 312 10^3/uL (130-400); WHITE BLOOD COUNT 6.2 10^3/uL (4.3-11.0)
[2022-06-23 11:00] LABS: ALBUMIN 4.3 GM/DL (3.2-4.5); BILIRUBIN,TOTAL 0.3 MG/DL (0.1-1.0); CALCIUM 9.4 MG/DL (8.5-10.1); CREATININE SERUM 0.9 MG/DL (0.60-1.30); POTASSIUM 4.2 MMOL/L (3.6-5.0); TOTAL PROTEIN 7.3 GM/DL (6.4-8.2)
[2022-06-23 11:21] LABS: FREE T4 (FREE THYROXINE) 0.9 NG/DL (0.70-1.48)
== END ==
LOC: LAB 10:10
PROVIDERS: ATTEND Nurse Practitioner Family
DX: Z00.00 Encounter for general adult medical examination without abnormal findings (principal); B27.90 Infectious mononucleosis, unspecified without complication; R51.9 Headache, unspecified; E04.9 Nontoxic goiter, unspecified; R79.89 Other specified abnormal findings of blood chemistry; R73.01 Impaired fasting glucose
CPT/HCPCS: 36415; 80053; 80061; 82306; 83036; 84439; 84443; 84480; 85025; 86663; 86664; 86665

== ENCOUNTER → 2022-07-06 | Outpatient (CLI) | payer OTHER ==
--- NOTE | 2022-07-06 14:28 | Diagnostic Imaging Report ---
INDICATION: Routine screening. COMPARISON: 03/10/2018. TECHNIQUE: 2D and 3D bilateral screening mammography was performed with CAD. FINDINGS: Both breasts are heterogeneously dense, limiting the sensitivity of mammography. No mass or malignant-appearing microcalcifications are seen. The axillae are unremarkable. IMPRESSION: No mammographic features suspicious for malignancy are identified. ACR BI-RADS Category 1: Negative. Result letter will be mailed to the patient. Note: At least 10% of breast cancer is not imaged by mammography. Dictated by: Dictated on workstation # [id number]
== END ==
LOC: RAD 10:00
PROVIDERS: ATTEND Family Medicine
DX: Z12.31 Encounter for screening mammogram for malignant neoplasm of breast (principal)
CPT/HCPCS: 77063; 77067

== ENCOUNTER → 2022-12-18 | Outpatient (CLI) | payer OTHER ==
[2022-12-18 09:39] LABS: ALBUMIN 4.2 GM/DL (3.2-4.5)
[2022-12-18 09:40] LABS: CALCIUM 8.9 MG/DL (8.5-10.1)
[2022-12-18 09:43] LABS: BILIRUBIN,TOTAL 0.3 MG/DL (0.1-1.0)
[2022-12-18 09:45] LABS: CREATININE SERUM 0.91 MG/DL (0.60-1.30)
== END ==
LOC: LAB 09:02
PROVIDERS: ATTEND Nurse Practitioner Family
DX: E67.3 Hypervitaminosis D (principal); E78.5 Hyperlipidemia, unspecified
CPT/HCPCS: 36415; 80053; 80061; 82306

== ENCOUNTER → 2023-04-12 | Outpatient (CLI) | payer OTHER ==
[2023-04-12 12:06] LABS: BASOPHILS % (AUTO) 1 % (0-10); EOSINOPHILS # (AUTO) 0.1 10^3/uL (0.0-0.3); EOSINOPHILS % (AUTO) 2 % (0-10); HEMATOCRIT 42 % (35-52); HEMOGLOBIN 14.5 g/dL (11.5-16.0); LYMPHOCYTES % (AUTO) 40 % (12-44); MEAN CORPUSCULAR HEMOGLOBIN 31 pg (25-34); MEAN CORPUSCULAR HGB CONC 35 g/dL (32-36); MEAN CORPUSCULAR VOLUME 89 fL (80-99); MEAN PLATELET VOLUME 9.7 fL (9.0-12.2); MONOCYTES # (AUTO) 0.3 10^3/uL (0.0-1.0); MONOCYTES % (AUTO) 6 % (0-12); NEUTROPHILS # (AUTO) 2.6 10^3/uL (1.8-7.8); NEUTROPHILS % (AUTO) 52 % (42-75); PLATELET COUNT 315 10^3/uL (130-400); WHITE BLOOD COUNT 5.1 10^3/uL (4.3-11.0)
[2023-04-12 12:47] LABS: ALBUMIN 4.2 GM/DL (3.2-4.5); POTASSIUM 4.2 MMOL/L (3.6-5.0)
[2023-04-12 12:48] LABS: CALCIUM 9.1 MG/DL (8.5-10.1); ERYTHROCYTE SEDIMENTATION RATE 8 MM/HR (0-20)
[2023-04-12 12:50] LABS: TOTAL PROTEIN 6.8 GM/DL (6.4-8.2)
[2023-04-12 12:51] LABS: BILIRUBIN,TOTAL 0.3 MG/DL (0.1-1.0)
[2023-04-12 12:53] LABS: CREATININE SERUM 0.9 MG/DL (0.60-1.30)
[2023-04-12 13:34] LABS: FREE T4 (FREE THYROXINE) 0.89 NG/DL (0.70-1.48)
== END ==
LOC: LAB 11:31
PROVIDERS: ATTEND Nurse Practitioner Family
DX: R73.09 Other abnormal glucose (principal); E55.9 Vitamin D deficiency, unspecified; E78.2 Mixed hyperlipidemia; F41.1 Generalized anxiety disorder; E03.9 Hypothyroidism, unspecified; S30.861A Insect bite (nonvenomous) of abdominal wall, initial encounter; M25.50 Pain in unspecified joint
CPT/HCPCS: 36415; 80053; 80061; 82306; 82533; 82672; 83001; 83002; 83036; 84144; 84439; 84443; 85025; 85652; 86038; 86141; 86376; 86663; 86664; 86665; 86666; 86668; 86757; 86800

== ENCOUNTER → 2023-07-08 | Outpatient (CLI) | payer OTHER ==
--- NOTE | 2023-07-08 12:20 | Diagnostic Imaging Report ---
CLINICAL INDICATION: Patient with chronic low back pain. EXAM: MRI of the lumbar spine performed without IV contrast. Sequences include sagittal T2, sagittal T1, sagittal T2 fat-sat, and axial T2. COMPARISON: MRI of the lumbar spine with and without contrast dated 06/28/2014. FINDINGS: There is no acute lumbar spine fracture or dislocation. The visualized portions of the distal thoracic spinal cord, conus medullaris, and cauda equina nerve roots are unremarkable. The conus medullaris tip is seen at the upper L2 vertebral body level. There is no significant paraspinal soft tissue abnormality. There are degenerative spurs involving the thoracolumbar region. There is intraosseous hemangioma involving the left L5 pedicle. There is interval progression of Modic type II degenerative signal changes involving the T11-T12 and T12-L1 levels anteriorly with associated degenerative spurs which have also slightly progressed. The vertebral body heights and intervertebral disk heights are maintained. There is no significant posterior disk bulge. There is no significant central canal or neural foramen narrowing seen on this exam. IMPRESSION: There is slight progression of mild degenerative disease involving the thoracolumbar region. There is no significant central canal or neural foramen narrowing. There is no significant disk bulge. Dictated by: Dictated on workstation # [id number]
== END ==
LOC: RAD 10:15
PROVIDERS: ATTEND Nurse Practitioner Family
DX: M47.815 Spondylosis without myelopathy or radiculopathy, thoracolumbar region (principal); M54.16 Radiculopathy, lumbar region
CPT/HCPCS: 72148

== ENCOUNTER → 2023-08-04 | Outpatient (CLI) | payer OTHER ==
--- NOTE | 2023-08-04 09:00 | Diagnostic Imaging Report ---
INDICATION: Recent screening views dated 07/19/2023 showed new focal asymmetries in the slightly upper and outer quadrant of the mid depth of the left breast which was a change from previous mammograms. The patient was called back today for a 2D and 3D digital diagnostic left mammogram. BREAST DENSITY: 2. FINDINGS: With spot compression in the CC and ML orientation, we show dispersal of fibroglandular elements in the region of prior concern. There was no evidence for mass, spiculation, or architectural distortion. No suspicious calcifications. IMPRESSION: The prior density can now be confirmed to have reflected superimposition and no further workup is needed. Assuming the absence of any adverse interval clinical change, this patient can be returned to routine bilateral screening views next due in 1 year. ACR BI-RADS Category 1: Negative. Result letter will be mailed to the patient. Note: At least 10% of breast cancer is not imaged by mammography. Dictated by: Dictated on workstation # [id number]
== END ==
LOC: RAD 08:29
PROVIDERS: ATTEND Nurse Practitioner Family
DX: R92.8 Other abnormal and inconclusive findings on diagnostic imaging of breast (principal)
CPT/HCPCS: 77065; G0279